=== PATIENT | female | born 1975 | race African-American/Black ===

== ENCOUNTER 2018-06-17 15:59 | Emergency (ER) | payer OTHER ==
[~2018-06-17] VITALS: Ht 172.7 cm; Wt 107.5 kg
--- NOTE | ~2018-06-17 | EKG ---
[place] [address] [address] [facility] [place] [address] ELECTROCARDIOGRAM REPORT Name: CAROLYN VALENCIA RL Room #: [id number] Admission: 06/17/18 Attend Phys: Discharge: Date of : 71 Report #: [id number] THIS REPORT FOR: //name// [facility] ED Test Date: 2018-06-17 Test Time: 16:24:13 Pat Name: CAROLYN VALENCIA Department: Room: Gender: F Divorce Attorney: : 1975 Requested By: Mony Romero Order Number: [id number] MD: Narendra Naqvi Measurements Intervals Teller Rate: 57 P: 50 WV: 151 QRS: 1 QRSD: 90 T: 28 QT: 420 QTc: 409 Interpretive Statements Sinus rhythm early transition consider V2 V3 reversal Left ventricular hypertrophy Compared to ECG 02/05/2015 10:05:02 Sinus bradycardia no longer present Electronically Signed On 06-17-2018 17:07:10 VASCULAR SURGERY PHYSICIAN by Narendra Naqvi [email or web address] <ELECTRONICALLY SIGNED> By: Narendra Naqvi MD 06/17/18 1707 1624 1624 Narendra Naqvi MD /ADRY
[~2018-06-17 15:59] MED LIST: NOHOMEMEDICATIONS; NORCO 5-325 TA1 EACH PO; ONDANSETRON HCL4 M2 PO; PRILOSEC OTC20 MG PO; TRAMADOL 50 MG50 MG PO
[2018-06-17] MEDS ORDERED: ZANTAC 150MG T150 MG PO (16:19)
[2018-06-17 17:23] LABS: URINE BILIRUBIN NEGATIVE (Negative); URINE BLOOD NEGATIVE (Negative); URINE CLARITY CLEAR; URINE COLOR YELLOW; URINE GLUCOSE-RANDOM* NEGATIVE (Negative); URINE KETONES NEGATIVE (Negative); URINE LEUKOCYTES NEGATIVE (Negative); URINE NITRITE NEGATIVE (Negative); URINE PROTEIN (DIPSTICK) NEGATIVE (Negative); URINE SPECIFIC GRAVITY >= 1.030 (1.005-1.035); URINE UROBILINOGEN 0.2 E.U./dl (0.2-1.0)
[2018-06-17 17:23] LABS: ABSOLUTE NEUTROPHILS 2.8 thou/uL (1.4-8.2); BASOPHILS 0.3 % (0.0-2.0); EOSINOPHILS 1.4 % (0.0-3.0); HEMATOCRIT 37.7 % (37.0-47.0); HEMOGLOBIN 12.7 gm/dL (12.0-15.0); LYMPHOCYTES 42.3 % (24.0-44.0); MCH 29.1 pg (26.0-34.0); MCHC 33.8 g/dL (28.0-37.0); MCV 86.1 fL (80.0-100.0); MONOCYTES 7.3 % (1.0-8.0); PLATELET COUNT 270 thou/uL (150-400); POLYS 48.7 % (36.0-66.0); RBC 4.37 mil/uL (4.20-5.00); RDW 15.2 % (10.5-14.5); WBC 5.7 thou/uL (4.0-11.0)
[2018-06-17 17:34] LABS: CALCIUM 9.1 mg/dL (8.5-10.1); POTASSIUM 4.8 mmol/L (3.5-5.1)
[2018-06-17 17:36] LABS: PROTIME 10.3 Seconds (9.3-11.4)
[2018-06-17 17:39] LABS: ALBUMIN 3.4 g/dL (3.4-5.0); TOTAL BILIRUBIN 0.4 mg/dL (<0.1-1.0); TOTAL PROTEIN 7.7 g/dL (6.4-8.2)
== END 2018-06-17 18:32 | disposition home or self-care (01) ==
LOC: ER 15:59
PROVIDERS: Physician Assistant
DX: R42 Dizziness and giddiness (principal); R05 Cough; R55 Syncope and collapse; R19.7 Diarrhea, unspecified; R20.0 Anesthesia of skin; Z91.040 Latex allergy status